=== PATIENT | male | born 1940 | race Caucasian/White ===

== ENCOUNTER 2021-07-04 06:38 | Inpatient (IN) | payer OTHER, SELFPAY ==
[2021-07-04] VITALS (22 sets, daily range): BP systolic 122–174; BP diastolic 66–99; PULSE 49–71; RESP 12–18; TEMP 36.6; O2SAT 94–97; BMI 39.4
[2021-07-04] MEDS: HEPARIN/D5w 25,000 UNITS 25,000 UNITS/250 ML IV.SOLN. 10 UNITS CONT INF (06:00)
--- NOTE | 2021-07-04 06:25 | PCM.HP.STD ---
HPI - General General Date of Admission: 07/04/21 Date of Service: 07/04/21 Chief Complaint: Chest pain, positive troponin HPI Darlene KEYS, is a 81 M who presents to the PCU at [facility] after being transferred from the emergency room at [facility]. Patient was taken there by squad early this morning with complaints of precordial chest pain which he described as pressure-like in nature and radiating into both jaw areas. His symptoms started approximately 12 midnight, his symptoms continued for approximately 2 hours, chest discomfort went away completely after he was given nitroglycerin in the ER. Patient had been given aspirin in the squad on the way into the hospital. Patient denied any nausea or vomiting, he denied any shortness of breath. Labs obtained at [facility] revealed a chemistry profile which was abnormal for potassium of 2.7 and a BUN of 24. Patient's beta natruretic peptide was elevated at 599 (upper limit of normal for the hospital was 450) and the patient's troponin was elevated at 174. Patient CBC was remarkable for hemoglobin of 12.5 but was otherwise normal. Patient's D-dimer was elevated and he underwent a CT of the chest which showed no evidence of pulmonary emboli or infiltrative process/congestive changes. EKG showed a right bundle branch block which appeared to be present on a previous EKG dated 10/15/2017, there were however ST-T wave changes in V3 through V6 which were not present on his previous EKG in 2018. Attempts were made to transfer the patient to [facility] but beds were not available. Patient was given oral potassium 20 mEq KCl in the emergency room and a heparin drip was started- without a bolus on my direction. Patient was excepted to [facility] PCU as a non-STEMI. Patient's chronic medical problems include hypertension for which he takes atenolol and hydrochlorothiazide. [facility] Medical History (Updated 07/04/21 @ 06:[address] Ulices Langley DO) CPAP (continuous positive airway pressure) dependence Hypertension Sleep apnea Home Medications atenolol 07/04/21 [History Last Taken Unknown] hydrochlorothiazide 07/04/21 [History Last Taken Unknown] venlafaxine mg PO 07/04/21 [History Last Taken Unknown] Allergy/AdvReac Type Severity Reaction Status Date / Time No Known Allergies Allergy Verified 07/04/21 06:05 Social History Smoking Status: Never smoker ROS Constitutional Constitutional: Denies anorexia, change in weight, fever(s), night sweats or weakness Eyes Eyes: Denies blurry vision, change in vision, discharge from eye(s) or eye pain Cardiovascular Cardiovascular: Reports chest pain; Denies claudication, dyspnea on exertion, edema, lightheadedness, palpitations, paroxysmal nocturnal dyspnea or rapid heart rate Respiratory/Chest Respiratory/Chest: Denies cough, excessive phlegm production, hemoptysis, productive cough, shortness of breath at rest or shortness of breath with exertion Gastrointestinal Gastrointestinal: Denies abdominal pain, coffee ground emesis, constipation, diarrhea, dyspepsia, hematemesis, hematochezia, melena, nausea or vomiting Genitourinary Genitourinary: Denies dysuria, hematuria, urinary frequency, urinary hesitancy, urinary incontinence or urinary urgency Musculoskeletal Musculoskeletal: Denies back pain, joint pain, joint stiffness, joint swelling, myalgias or neck pain Neurologic Neurologic: Denies abnormal gait, abnormal speech, dizziness, focal weakness, headache(s), loss of vision, numbness, other visual disturbances, paresthesias, syncope or tingling Psychiatric Psychiatric: Denies anxiety, cognitive impairment, depression, irritability, mood swings or suicidal ideation Endocrine Endocrinology: Denies change in body appearance, cold intolerance, excessive sweating, heat intolerance, polydipsia or polyuria Hematologic/Lymphatic Hematologic/Lymphatic: Denies none, anemia, easy bleeding, easy bruising or lymphadenopathy Allergic/Immunologic Allergic/Immunologic: Denies rhinitis, urticaria, eczemia or asthma Vital Signs Vital Signs Vital Signs: 07/04/21 06:08 07/04/21 06:12 Temperature 98 F Temperature Source Oral Pulse Rate 70 61 Respiratory Rate 16 Blood Pressure 174/87 H Blood Pressure Mean 116 Blood Pressure Source Monitor Blood Pressure Position Semi-Fowlers Blood Pressure Location Right Arm Pulse Ox 97 Oxygen Delivery Method Nasal Cannula Oxygen Flow Rate (L/min) 2 Weight Weight: 121.1 kg Body Mass Index (BMI) 39.4 Physical Exam Const alert, oriented x3, no apparent distress and healthy appearing General Appearance: cooperative, well kempt and well developed Orientation / Consciousness: awake, oriented to person, oriented to place and oriented to time HEENT normocephalic and moist oral mucous membranes Eyes PERRL, EOMs intact bilaterally and conjunctivae normal Neck nuchal rigidity, supple, no JVD, thyroid normal and no carotid bruits General: trachea midline Resp normal respiratory effort, no retractions, no use of accessory muscles and clear to auscultation bilaterally Auscultation: Negative for rales, rhonchi or wheezes Cardio regular rate, regular rhythm, S1 normal heart sound, S2 normal heart sound, no murmurs, no rub, no gallops and no JVD GI normal to inspection, nondistended, normoactive bowel sounds, soft to palpation, non-tender and non-distended Extremity no clubbing, cyanosis or edema Skin no rashes or lesions noted General Skin Exam: no breakdown Neuro oriented x3, CN's II-XII intact bilaterally, no focal motor deficits and no sensory deficits noted Sensorium / Orientation: awake and alert Speech: speech normal Psych affect normal Assessment & Plan Assessment/Plan (1) NSTEMI, initial episode of care: PLAN: 1. [id number] was admitted to PCU, stat BMP was ordered as well as stat cardiac enzymes, patient will remain on a heparin drip, he will be n.p.o., I have talked with Dr. Baltazar about his care and the plan will be for a heart cath today, I discussed this with the patient and he consents to having a heart catheter if needed. #2 hypokalemia-patient's potassium will be rechecked and he will get supplemental potassium as needed #3 essential hypertension-patient will remain on his atenolol for now, I will hold his hydrochlorothiazide #4 right bundle branch block-this appears to be chronic for the patient, he however does have ST-T wave changes over the anterior precordial leads Charges/Coding Visit Charges Inpatient E&M: 17153 Init Hosp L3
--- NOTE | 2021-07-04 06:44 | EKG12_ITS ---
Test Reason : DIRECT ADMIT Blood Pressure : / mmHG Vent. Rate : 059 BPM Atrial Rate : 059 BPM P-R Int : 244 ms QRS Dur : 140 ms QT Int : 478 ms P-R-T Axes : 050 030 -21 degrees QTc Int : 473 ms Sinus bradycardia with 1st degree A-V block Right bundle branch block T wave abnormality, consider lateral ischemia Abnormal ECG No previous ECGs available Confirmed by COREY HAMILTON, NAM ([id number]), scientific publications editor SHERYL ROUSSEAU ([id number]) on 07/07/2021 10:11:09 A M Referred By: EULALIO Confirmed By:YANG NICOLE MD
--- NOTE | 2021-07-04 06:47 | ECHOCS_ITS ---
Reason For Study: Chest Pain Procedure This was a 2D Doppler, Color Flow transthoracic echocardiogram. Contrast injection was performed. Exam performed portable in patient room. Left Ventricle The estimated ejection fraction is 50 %. No evidence for diastolic dysfunction. Hypokinesis of the lateral wall and posterior wall. Right Ventricle Normal RV size. Normal systolic function. Atria Normal left atrium. Normal right atrium. No doppler evidence for ASD. Mitral Valve There is moderate mitral annular calcification. There is no mitral valve stenosis. Trivial mitral valve insufficiency. Tricuspid Valve There is no tricuspid stenosis. Trivial tricuspid valve insufficiency. Unable to estimate RV systolic pressure due to insufficient tricuspid regurgitant envelope. Aortic Valve Trisinus/trileaflet aortic valve. Aortic sclerosis, no stenosis. There is no aortic stenosis. No aortic valve insufficiency. Pulmonic Valve There is no pulmonic valvular stenosis. No pulmonic valve insufficiency. Great Vessels Normal aortic root. Pericardium/Pleural No pericardial effusion. Medication Diluted definity 3ml given slow IV push to enhance endocardial definition. MMode/2D Measurements & Calculations LVIDd: 5.4 cm IVSd: 1.2 cm Ao root diam: 4.0 cm LVIDs: 4.0 cm LVPWd: 1.1 cm RVDd: 3.2 cm FS: 25.0 % LAV(MOD-bp): 71.0 ml LVAd ap4: 36.6 cm2 SV(MOD-sp4): 69.4 ml LAV(MOD-bp) Indexed: 30.7 ml/m2 LVLd ap4: 8.7 cm LAV(MOD-sp2): 61.7 ml EDV(MOD-sp4): 127.5 ml LAV(MOD-sp4): 67.5 ml EDV(sp4-el): 131.0 ml LVAs ap4: 23.1 cm2 LVLs ap4: 8.0 cm ESV(MOD-sp4): 58.1 ml ESV(sp4-el): 57.1 ml EF(MOD-sp4): 54.4 % EF(sp4-el): 56.4 % SV(sp4-el): 73.9 ml LA A4 area: 23.7 cm2 LA dimension(2D): 3.8 cm RA A4 area: 15.5 cm2 Doppler Measurements & Calculations MV E max karsten: 86.4 cm/sec Lat Peak E' Karsten: 7.2 cm/sec Med Peak E' Karsten: 7.6 cm/sec MV A max karsten: 94.4 cm/sec E/E' lat: 11.9 E/E' med: 11.3 MV E/A: 0.92 Ao V2 max: 144.3 cm/sec LV V1 max: 97.1 cm/sec PA V2 max: 79.6 cm/sec Ao max P.3 mmHg LV V1 max P.8 mmHg Ao V2 mean: 103.6 cm/sec Ao mean P.7 mmHg Ao V2 VTI: 36.3 cm ECHO/Echo Complete W/ Contrast Interpretation Summary The estimated ejection fraction is 50 %. No evidence for diastolic dysfunction. Hypokinesis of the lateral wall and posterior wall Trivial mitral valve insufficiency. Ordering Physician: Ulices Langley Performed By: Annette Sahu RDCS, RVT
[2021-07-04 07:10] LABS: Anion Gap 5 (5-15); BUN 23 mg/dL (7-18); BUN/Creat Ratio 24.2 RATIO (10-20); Calcium,Total 8.8 mg/dL (8.5-10.1); Chloride 103 mmol/L (98-107); Creatinine, Serum 0.95 mg/dL (0.70-1.30); EST Glomerular Filtration Rate 81 mL/min (>60); Est Glom Filt Rate - Afr Amer 98 mL/min (>60); Estimated Creatinine Clearance 63.05 ml/min; Glucose 136 mg/dL (74-106); Potassium 2.9 mmol/L (3.5-5.1); Sodium Level 141 mmol/L (136-145); Troponin-I HS 707 pg/mL (3.0-78.0)
[2021-07-04] MEDS: Potassium Chloride 10mEq/100mL 10 MEQ/100 ML IV.SOLN. 100 MEQ IV BOLUS ×4 (08:30→13:49)
[2021-07-04] MEDS: Atenolol 50 MG Tablet PO (09:08)
[2021-07-04] MEDS: Aspirin 81 MG TAB.CHEW PO (09:08)
[2021-07-04] MEDS: Potassium Chloride Oral Tablet 20 MEQ PO ×2 (09:08→19:08)
[2021-07-04 09:25] LABS: Partial Thromboplast Time 33.6 Seconds (24.1-36.2)
--- NOTE | 2021-07-04 09:30 | PN.HOSP_ITS ---
Documented by User: JOHN Nava 07/04/21 09:39 Subjective Subjective Patient seen and examined. Patient lying in bed no distress noted. Patient family at bedside. Patient currently undergoing echocardiogram. Objective Data Objective Data Vital Signs: Vital Signs Temp Pulse Resp BP Pulse Ox 97.8 F 60 18 152/74 H 97 07/04/21 09:12 07/04/21 09:12 07/04/21 09:12 07/04/21 09:12 07/04/21 09:12 Oxygen Flow Rate (L/min) 2 Oxygen Delivery Method Room Air Weight: 266 lb 15.677 oz Body Mass Index (BMI) 39.4 Lab / Micro Data Result Diagrams: 07/04/21 06:28 07/04/21 06:28 Labs: Laboratory Results - last 24 hr 07/04/21 06:28: Sodium 141, Potassium 2.9 L, Chloride 103, Carbon Dioxide 33.0 H , Anion Gap 5, BUN 23 H, Creatinine 0.95, Estim Creat Clear Calc 63.05, Est GFR (MDRD) Af Amer 98, Est GFR (MDRD) Non-Af 81, BUN/Creatinine Ratio 24.2 H, Glucose 136 H, Calcium 8.8, Troponin I High Sens 707 H* 07/04/21 09:00: APTT 33.6 Physical Exam Const alert, oriented x3 and no apparent distress HEENT head/scalp atraumatic Head and Scalp: normocephalic Eyes conjunctivae normal and no scleral icterus Neck supple General: trachea midline Resp normal respiratory effort, normal air movement and clear to auscultation bilaterally Effort and Inspection: able to speak in complete sentences and symmetric chest movement Cardio regular rate, regular rhythm, S1 normal heart sound and S2 normal heart sound GI normal to inspection, nondistended, normoactive bowel sounds, soft to palpation and non-tender Extremity normal to inspection, full ROM and no clubbing, cyanosis or edema Peripheral Pulses: Yes pulses 2+ throughout Skin no rashes or lesions noted, no wounds and skin turgor normal Neuro oriented x3, no focal motor deficits and no sensory deficits noted Sensorium / Orientation: awake and alert Speech: speech normal Psych affect normal Assessment & Plan Assessment/Plan (1) NSTEMI, initial episode of care: PLAN: 1. NSTEMI -Echocardiogram completed -Dr. Baltazar consulted -Troponin 707, 973 -Heparin drip continued at 10 mL/h 2. Hypokalemia -Serum 2.9, patient currently receiving potassium chloride 40 mEq IV x1 as well as potassium chloride 20 mEq twice daily -BMP ordered daily 3. Essential hypertension -Continue atenolol, hydrochlorothiazide on hold -Vital signs per protocol, currently stable DVT prophylaxis-patient on heparin drip This patient was seen by JOHN Nava under the supervision of Dr. Tijerina. 13 minutes spent in clinical coordination of patient's plan of care. Documented by User: Dr. Orlando Tijerina MD 07/04/21 10:06 Objective Data Lab / Micro Data Result Diagrams: 07/04/21 06:28 07/04/21 06:28 Assessment & Plan Addt'l Comments This patient was seen in conjunction with JOHN Nava . I have independently interviewed and examined the patient and reviewed pertinent historical, laboratory, and other data. Please refer to JOHN Nava note for details of this patient's presentation, findings, and recommendations. I have reviewed JOHN Nava note and concur with documented findings. In brief, patient is a 81-year-old gentleman with past medical history signal for hypertension admitted with chest pain found to have elevated troponin consistent with acute non-STEMI admitted to monitored bed treatment initiated per protocol Physical Examination: GENERAL: cooperative HEENT: Atraumatic; EYES; Anicteric, Normal Conjunctiva NECK; supple, normal thyroid, RESPIRATORY: Diminished to auscultation CARDIOVASCULAR: Regular S1 S2, GI: soft, normoactive bowel sounds, : No Renal angle tenderness; EXTREMITIES: No edema, no clubbing, MUSCULOSKELETAL: no muscle wasting NEURO: Awake; no lateralizing signs. SKIN: No Rash PSYCH; Flat affect Assessment: 1. Acute non-STEMI 2. Essential hypertension 3. Class II obesity with BMI of 39.4 4. DVT prophylaxis Recommendations: 1. I have discussed the results of my overview and impressions with the patient 2. Options for management were reviewed Advance planning; did discuss with the patient and family again (patient's brother) regarding advanced directives as well as CODE STATUS. Did explain the various scenarios involved ( FULL CODE, DNR CCA, DNR CCA with no intubation, and DNR CC and what each meant) patient elected to remain full code with CPR and intubation if needed. Order was placed. Time spent on discussion 18 minutes. Total time spent by myself and the advanced practice practitioner evaluating patient, reviewing labs, subsequent management decisions, discussion with patient as well as other providers 40 minutes ( 25 of which was spent by myself) Charges/Coding Procedures Hospitalists Procedures: 06461 Advncd Care Plan 30 Min
[2021-07-04 09:32] LABS: Magnesium 2.2 mg/dL (1.6-2.6); Troponin-I HS 973 pg/mL (3.0-78.0)
--- NOTE | 2021-07-04 10:49 | CON.PCM.CA_ITS ---
Assessment & Plan Assessment/Plan (1) NSTEMI, initial episode of care: PLAN: We will proceed with coronary angiography. Risks and benefits explained to the patient. Continue potassium replacement. We will avoid left ventriculogram/left heart cath due to hyperkalemia. HPI Consult Data Date of Consult: 07/04/21 HPI Narrative HPI Narrative: MIGUEL KEYS, is a 81 M who presents with retrosternal pressure- like chest pain radiating to the right arm. Patient was found to have elevated troponin. His potassium was low and is being replaced. He is currently chest pain-free. Review of systems: All systems reviewed. All else is negative except as in HPI [facility] Medical History (Updated 07/04/21 @ 06:[address] Ulices Langley, DO) CPAP (continuous positive airway pressure) dependence Hypertension Sleep apnea Home Medications atenolol 25 mg PO 07/04/21 [History Last Taken Unknown] hydrochlorothiazide 07/04/21 [History Last Taken Unknown] venlafaxine mg PO 07/04/21 [History Last Taken Unknown] Allergy/AdvReac Type Severity Reaction Status Date / Time No Known Allergies Allergy Verified 07/04/21 06:05 Social History Smoking Status: Never smoker Physical Exam Const alert and oriented x3 Orientation / Consciousness: awake HEENT normocephalic Eyes no scleral icterus Resp normal respiratory effort Skin no rashes or lesions noted Neuro oriented x3 Risk Stratification Risk Stratification Applicable: No Charges/Coding Visit Charges Inpatient E&M: 87728 Init Hosp L2 Objective Data Vital Signs: Vital Signs Temp Pulse Resp BP Pulse Ox 97.8 F 60 18 152/74 H 97 07/04/21 09:12 07/04/21 09:12 07/04/21 09:12 07/04/21 09:12 07/04/21 09:12 Oxygen Flow Rate (L/min) 2 Oxygen Delivery Method Room Air Weight: 266 lb 15.677 oz Body Mass Index (BMI) 39.4 Intake & Output: Intake and Output for Last 24 Hours 07/02/21 07/03/21 07/04/21 23:59 23:59 23:59 Intake Total 100 / 100 Balance 100 / 100 Lab / Micro Data Result Diagrams: 07/04/21 06:28 07/04/21 06:28 Labs: Laboratory Results - last 24 hr 07/04/21 06:28: Sodium 141, Potassium 2.9 L, Chloride 103, Carbon Dioxide 33.0 H , Anion Gap 5, BUN 23 H, Creatinine 0.95, Estim Creat Clear Calc 63.05, Est GFR (MDRD) Af Amer 98, Est GFR (MDRD) Non-Af 81, BUN/Creatinine Ratio 24.2 H, Glucose 136 H, Calcium 8.8, Troponin I High Sens 707 H* 07/04/21 08:48: Magnesium 2.2, Troponin I High Sens 973 H* 07/04/21 09:00: APTT 33.6 Cardiology Labs/Tests 07/04/21 06:28: Sodium 141, Potassium 2.9 L, Chloride 103, Carbon Dioxide 33.0 H , Anion Gap 5, BUN 23 H, Creatinine 0.95, Est GFR (MDRD) Af Amer 98, Est GFR (MDRD) Non-Af 81, BUN/Creatinine Ratio 24.2 H, Glucose 136 H, Calcium 8.8 07/04/21 08:48: Magnesium 2.2 07/04/21 09:00: APTT 33.6 Rhythm: EKG: ECHO: Stress Test: Cardiac Cath: PCI: CT Surgery: Holter monitor: EPS: PPM: CXR: Chest CT Scan:
[2021-07-04] MEDS: 0.9% Normal Saline 1,000 ML 70 ML IV (13:00)
--- NOTE | 2021-07-04 13:04 | PCM.DC ---
Discharge Instructions Diet Discharge Diet: Low fat / Low cholesterol Follow Up Care Test Results: Test results from this visit will be discussed in further detail at your follow-up appointment, if applicable. Discharge Plan Admission Admit Date/Time: 07/04/21 06:38 Primary Reason for Your Visit: Chest Pain Attending Provider: Orlando Tijerina Consulting Providers: Brian Baltazar ; Ulices Langley Discharge Orders/Prescriptions Prescriptions: New atorvastatin 80 mg Tablet 80 mg PO QHS Qty: 0 RF: 0 potassium chloride [Klor-Con M20] 20 mEq Tablet,Er Particles/Crystals 20 meq PO BIDCM Qty: 0 RF: 0 nitroglycerin 0.4 mg Tablet, Sublingual 0.4 mg sublingual Q5M PRN (Reason: Cardiac/Chest Pain) Qty: 0 RF: 0 aspirin 81 mg Tablet,Chewable 81 mg PO BREAKFAST Qty: 0 RF: 0 atenolol 50 mg Tablet 50 mg PO DAILY Qty: 0 RF: 0 sodium chloride 0.9 % (flush) [BD PosiFlush Normal Saline 0.9] Syringe 10 - 40 ml IV UD PRN (Reason: Saline Flush) Qty: 0 RF: 0 sodium chloride 0.9 % (flush) [BD PosiFlush Normal Saline 0.9] Syringe 10 - 40 ml IV UD PRN (Reason: Saline Flush) Qty: 0 RF: 0 ondansetron HCl (PF) 4 mg/2 mL Solution 4 mg IV Q8H PRN PRN (Reason: Nausea/Vomiting) Qty: 0 RF: 0 morphine 4 mg/mL Syringe 4 mg IV Q3H PRN PRN (Reason: Pain Score 6-10) Qty: 0 RF: 0 Continued atenolol 25 mg tablet 25 mg PO RF: 0 No Action venlafaxine 75 mg capsule,extended release 24hr PO RF: 0 hydrochlorothiazide 25 mg tablet RF: 0 Disposition Disposition (needs filled in before D/C Order can be placed): [facility]
--- NOTE | 2021-07-04 13:10 | PCM.DC.SUM ---
Documented by User: JOHN Nava 07/04/21 13:17 Providers Date of Admission: 07/04/21 Consultations 07/04/21 06:47 Consult: Cardiology Routine Consulting Provider: Brian Baltazar Reason for Consult: Non-STEMI EMERGENT Consult: No MD Notified: Yes Date Notified: 07/04/21 Time Notified: 06:41 Method of Notification: Verbal Method of Consult:: In-Person Reason For Visit: NSTEMI Diagnosis Discharge Diagnosis (1) NSTEMI, initial episode of care: Status: Acute Code(s): I21.4 - Non-ST elevation (NSTEMI) myocardial infarction Medications at Discharge Home Medications aspirin 81 mg PO BREAKFAST #0 tab 07/04/21 atenolol 50 mg PO DAILY #0 tab 07/04/21 atorvastatin 80 mg PO QHS #0 tab 07/04/21 hydrochlorothiazide 07/04/21 morphine 4 mg IV Q3H PRN PRN #0 ml 07/04/21 nitroglycerin 0.4 mg SUBLINGUAL Q5M PRN #0 tab 07/04/21 ondansetron HCl (PF) 4 mg IV Q8H PRN PRN #0 ml 07/04/21 potassium chloride [Klor-Con M20] 20 meq PO BIDCM #0 tab 07/04/21 sodium chloride 0.9 % (flush) [BD PosiFlush Normal Saline 0.9] 10 - 40 ml IV UD PRN #0 ml 07/04/21 sodium chloride 0.9 % (flush) [BD PosiFlush Normal Saline 0.9] 10 - 40 ml IV UD PRN #0 ml 07/04/21 venlafaxine mg PO 07/04/21 Hospital Course Procedures Cardiac catheterization and EKG Summary of Care Provided Minutes Spent on Discharge: 35 Hospital Course: Patient presented to outside ER with complaints of chest pain and pressure and a headache. Patient was noted to have EKG changes and an elevated troponin and it was decided that patient needed transfer to [facility] for further cardiology evaluation and possible heart cath. Dr. Baltazar was consulted and the case was discussed with him prior to patient arriving at our facility. This morning patient underwent echocardiogram and cardiac catheterization with Dr. Baltazar and patient was noted to need further evaluation at a tertiary care facility for CABG. patient has been accepted at [place] and we are awaiting bed placement. Physical Exam Const alert, oriented x3 and no apparent distress General Appearance: cooperative HEENT normocephalic and head/scalp atraumatic Eyes conjunctivae normal and no scleral icterus Neck supple General: trachea midline Resp normal respiratory effort, normal air movement and clear to auscultation bilaterally Cardio regular rate, regular rhythm, S1 normal heart sound, S2 normal heart sound and peripheral pulses 2+ throughout GI normal to inspection, nondistended, normoactive bowel sounds, soft to palpation and non-tender Extremity normal capillary refill and no clubbing, cyanosis or edema General Extremity: no tenderness to palpation of joints or extremities Skin skin turgor normal Lesions: no lesions Rashes: no rashes Neuro no focal motor deficits and no sensory deficits noted Speech: speech normal Motor Exam: Negative for general weakness Psych affect normal Appearance: appropriate Weight / BMI Weight Weight: 266 lb 15.677 oz Body Mass Index (BMI) 39.4 ABG / Lab / Microbiology Data Result Diagrams: 07/04/21 06:28 07/04/21 06:28 Laboratory: Laboratory Results - last 24 hr 07/04/21 06:28: Sodium 141, Potassium 2.9 L, Chloride 103, Carbon Dioxide 33.0 H, Anion Gap 5, BUN 23 H, Creatinine 0.95, Estim Creat Clear Calc 63.05, Est GFR (MDRD) Af Amer 98, Est GFR (MDRD) Non-Af 81, BUN/Creatinine Ratio 24.2 H, Glucose 136 H, Calcium 8.8, Troponin I High Sens 707 H* 07/04/21 08:48: Magnesium 2.2, Troponin I High Sens 973 H* 07/04/21 09:00: APTT 33.6 Radiography Diagnostic Testing: Radiology Impression Echocardiogram 07/04/21 06:47 Interpretation Summary The estimated ejection fraction is 50 %. No evidence for diastolic dysfunction. Hypokinesis of the lateral wall and posterior wall Trivial mitral valve insufficiency. Ordering Physician: Ulices Langley Performed By: Annette Sahu RDCS, RVT D/C Instructions Discharge Diet: Low fat / Low cholesterol Meaningful Use Info Meaningful Use Diagnoses (Choose all that apply): None applicable Discharge Plan Admission Admit Date/Time: 07/04/21 06:38 Primary Reason for Your Visit: Chest Pain Attending Provider: Orlando Tijerina Consulting Providers: Brian Baltazar ; Ulices Langley Discharge Orders/Prescriptions Prescriptions: New atorvastatin 80 mg Tablet 80 mg PO QHS Qty: 0 RF: 0 potassium chloride [Klor-Con M20] 20 mEq Tablet,Er Particles/Crystals 20 meq PO BIDCM Qty: 0 RF: 0 nitroglycerin 0.4 mg Tablet, Sublingual 0.4 mg sublingual Q5M PRN (Reason: Cardiac/Chest Pain) Qty: 0 RF: 0 aspirin 81 mg Tablet,Chewable 81 mg PO BREAKFAST Qty: 0 RF: 0 atenolol 50 mg Tablet 50 mg PO DAILY Qty: 0 RF: 0 sodium chloride 0.9 % (flush) [BD PosiFlush Normal Saline 0.9] Syringe 10 - 40 ml IV UD PRN (Reason: Saline Flush) Qty: 0 RF: 0 sodium chloride 0.9 % (flush) [BD PosiFlush Normal Saline 0.9] Syringe 10 - 40 ml IV UD PRN (Reason: Saline Flush) Qty: 0 RF: 0 ondansetron HCl (PF) 4 mg/2 mL Solution 4 mg IV Q8H PRN PRN (Reason: Nausea/Vomiting) Qty: 0 RF: 0 morphine 4 mg/mL Syringe 4 mg IV Q3H PRN PRN (Reason: Pain Score 6-10) Qty: 0 RF: 0 Continued venlafaxine 75 mg capsule,extended release 24hr PO RF: 0 hydrochlorothiazide 25 mg tablet RF: 0 Discontinued atenolol 25 mg tablet 25 mg PO RF: 0 Disposition Disposition (needs filled in before D/C Order can be placed): [facility] Documented by User: Dr. Orlando Tijerina MD 07/04/21 13:32 Providers Date of Admission: 07/04/21 Reason For Visit: NSTEMI Medications at Discharge Home Medications aspirin 81 mg PO BREAKFAST #0 tab 07/04/21 atenolol 50 mg PO DAILY #0 tab 07/04/21 atorvastatin 80 mg PO QHS #0 tab 07/04/21 hydrochlorothiazide 07/04/21 morphine 4 mg IV Q3H PRN PRN #0 ml 07/04/21 nitroglycerin 0.4 mg SUBLINGUAL Q5M PRN #0 tab 07/04/21 ondansetron HCl (PF) 4 mg IV Q8H PRN PRN #0 ml 07/04/21 potassium chloride [Klor-Con M20] 20 meq PO BIDCM #0 tab 07/04/21 sodium chloride 0.9 % (flush) [BD PosiFlush Normal Saline 0.9] 10 - 40 ml IV UD PRN #0 ml 07/04/21 sodium chloride 0.9 % (flush) [BD PosiFlush Normal Saline 0.9] 10 - 40 ml IV UD PRN #0 ml 07/04/21 venlafaxine mg PO 07/04/21 Hospital Course Summary of Care Provided Minutes Spent on Discharge: 35 Hospital Course: This patient was seen in conjunction with JOHN Nava . I have independently interviewed and examined the patient and reviewed pertinent historical, laboratory, and other data. Please refer to JOHN Nava note for details of this patient's presentation, findings, and recommendations. I have reviewed JOHN Nava note and concur with documented findings. In brief, patient is a 81-year-old gentleman with past medical history signal for hypertension admitted with chest pain found to have elevated troponin consistent with acute non-STEMI admitted to monitored bed treatment initiated per protocol Patient was seen in consultation by Dr. Baltazar who did perform left heart catheterization (see report of left heart catheterization ) based on findings he recommended patient to be transferred to a tertiary care facility for high risk PCI versus CABG at the place with cardiothoracic availability. Physical Examination: GENERAL: cooperative HEENT: Atraumatic; EYES; Anicteric, Normal Conjunctiva NECK; supple, normal thyroid, RESPIRATORY: Diminished to auscultation CARDIOVASCULAR: Regular S1 S2, GI: soft, normoactive bowel sounds, : No Renal angle tenderness; EXTREMITIES: No edema, no clubbing, MUSCULOSKELETAL: no muscle wasting NEURO: Awake; no lateralizing signs. SKIN: No Rash PSYCH; Flat affect Assessment: 1. Acute non-STEMI 2. Essential hypertension 3. Class II obesity with BMI of 39.4 4. DVT prophylaxis Recommendations: 1. I have discussed the results of my overview and impressions with the patient 2. Options for management were reviewed Total time spent by myself and the advanced practice practitioner evaluating patient, reviewing labs, subsequent management decisions, discussion with patient as well as other providers 35 minutes ( 20 of which was spent by myself) ABG / Lab / Microbiology Data Result Diagrams: 07/04/21 06:28 07/04/21 06:28 Meaningful Use Info Meaningful Use Diagnoses (Choose all that apply): AMI AMI/Post PCI/Angioplasty Aspirin given w/in 24hrs of arrival?: Yes ASA at discharge?: Yes Antiplatelet Therapy at Discharge:: Yes Statins at discharge?: Yes Rashad/ARB at discharge?: No Reason Rashad/ARB not ordered:: Not indicated Beta Luis at discharge?: Yes Done w/ Acute UT measure.: Yes Documented LVEF (%): 50 Discharge Plan Admission Admit Date/Time: 07/04/21 06:38 Primary Reason for Your Visit: Chest Pain Attending Provider: Orlando Tijerina Consulting Providers: Brian Baltazar ; Ulices Langley Discharge Orders/Prescriptions Prescriptions: New atorvastatin 80 mg Tablet 80 mg PO QHS Qty: 0 RF: 0 potassium chloride [Klor-Con M20] 20 mEq Tablet,Er Particles/Crystals 20 meq PO BIDCM Qty: 0 RF: 0 nitroglycerin 0.4 mg Tablet, Sublingual 0.4 mg sublingual Q5M PRN (Reason: Cardiac/Chest Pain) Qty: 0 RF: 0 aspirin 81 mg Tablet,Chewable 81 mg PO BREAKFAST Qty: 0 RF: 0 atenolol 50 mg Tablet 50 mg PO DAILY Qty: 0 RF: 0 sodium chloride 0.9 % (flush) [BD PosiFlush Normal Saline 0.9] Syringe 10 - 40 ml IV UD PRN (Reason: Saline Flush) Qty: 0 RF: 0 sodium chloride 0.9 % (flush) [BD PosiFlush Normal Saline 0.9] Syringe 10 - 40 ml IV UD PRN (Reason: Saline Flush) Qty: 0 RF: 0 ondansetron HCl (PF) 4 mg/2 mL Solution 4 mg IV Q8H PRN PRN (Reason: Nausea/Vomiting) Qty: 0 RF: 0 morphine 4 mg/mL Syringe 4 mg IV Q3H PRN PRN (Reason: Pain Score 6-10) Qty: 0 RF: 0 Continued venlafaxine 75 mg capsule,extended release 24hr PO RF: 0 hydrochlorothiazide 25 mg tablet RF: 0 Discontinued atenolol 25 mg tablet 25 mg PO RF: 0 Disposition Disposition (needs filled in before D/C Order can be placed): Acute Care Hospital Charges/Coding Visit Charges Inpatient E&M: 03707 Disch Hosp Hospital Course Imaging Results Imaging Results: 07/04/21 06:47 Echo Complete W/ Contrast [ECHO] Routine Consultations Consultations: Consultations 07/04/21 06:47 Consult: Cardiology Routine Consulting Provider: Brian Baltazar Reason for Consult: Non-STEMI EMERGENT Consult: No MD Notified: Yes Date Notified: 07/04/21 Time Notified: 06:41 Method of Notification: Verbal Method of Consult:: In-Person
--- NOTE | 2021-07-04 13:25 | CASEMGMT ---
JASMEET MELENDREZ assessment: Face to Face with patient for initial transition planning/care coordination assessment. JASMEET MELENDREZ introduced self and role at [facility], pt voices understanding and consents to assessment. Pt is lying in bed in no distress on room air. Pt is A/Ox4 and answers all questions appropriately. Pt with family at bedside during assessment. Care providers, pharmacy, and demographics verified/updated. Presentation: Pt was direct admit from from [facility] for [facility] Admitting dx: NSTEMI PCP: Martín Sauer Specialists: None Preferred Pharmacy: [facility] [place] [facility] [place]: [facility] [place] Living Will/HPOA: Pt states has LW/HPOA and is aware that they are not on file at [facility]. Pt states his son, Tello Carroll, is HPOA. LNOK: Tello Carroll, son/HPOA; Gerald Moreno, friend Living Arrangements: Pt lives alone on main level of 2 story home and states no concerns at home. Pt is independent with ADL's. Transportation: Pt states no transportation concerns. DME/HHC: Pt states no DME at home or need for any DME. Pt states has had HHC in past s/p knee surgery and states no hx of SNF. Pt states no concerns with going home at time of discharge. Pt states does not smoke cigarettes or drink ETOH. Pt states no further concerns/needs. CM to follow for any further discharge planning/needs. Advised pt to ask for CM if any further questions/concerns/needs arise, voices understanding. Pt Goal: Home Plan: Home after transfer to [place] for further intervention SSthemal ALAMO CM
[2021-07-04 13:33] LABS: Troponin-I HS 1536 pg/mL (3.0-78.0)
--- NOTE | 2021-07-04 14:37 | CL.D_ITS ---
Patient Name: MIGUEL KEYS Study Date: 07/04/2021 Performing: Sharad Baltazar MD Ht: 69 inches 175 cm : 1940 Wt: 267.1 lbs 121 kg Age: 81 Gender: male BSA: 2.33 PROCEDURE(S) PERFORMED [id number])LHC/COR CLINICAL PROFILE AND INDICATIONS Indications: ACS <= 24 hrs Heart Failure: None Stress/Imaging Stress/Image Study Performed: No CAD Presentations: Non-STEMI. Symptom onset Date/Time: 07/03/21 Time Not Available CONCLUSIONS CAD as described. RECOMMENDATIONS CT surgery consult for heart team approach for revascularization DESCRIPTION OF PROCEDURE The patient arrived to the procedure lab. The risks and benefits of the procedure as well as a full d escription of our services here and current unavailability of surgical backup were fully explained to the patient and/or their significant other prior to the catheterization. The Timeout was completed, verifying the correct patient and procedure. The patient's procedural site was prepped and draped in the usual fashion. Local anesthetic was given subcutaneously to right radial region with Lidocaine 2% . Using a modified Seldinger technique, arterial access was obtained via the right radial artery, a 6 Fr sheath was inserted. Left Coronary Artery selective angiography was performed in multiple views u sing a 5 Fr. JL3.5 catheter. Right Coronary Artery selective angiography was then performed in multip le views using a 5 Fr. JR 4 catheter.The arterial sheath was pulled and a TR Band was applied for hem ostasis CORONARY ANGIOGRAPHY DOMINANCE: Left Dominant LEFT HEART ASSESSMENT Left Ventricular Ejection Fraction: by Echo 50 % LEFT MAIN: 20 % Stenosis LEFT ANTERIOR DESCENDING ARTERY: PROX LAD: 95 % Stenosis. There is a bifurcation lesion involving the first diagonal which is a medium to large size vessel DISTAL LAD: Severe diffuse disease in the mid to distal LAD. The apical portion of the LAD has mild luminal irregularities DIAGONAL 1: Proximal - 70 % Stenosis CIRCUMFLEX ARTERY: Mild luminal irregularities OM 1: Proximal - 95 % Stenosis. The OM1 divides into 2 medium sized branches immediately distal to th is stenosis. RIGHT CORONARY ARTERY: OSTIAL RCA: 50 % Stenosis. RCA is small, non dominant COMPLICATIONS No Complications PROCEDURE MEDICATIONS Fentanyl 50 mcg IV Versed 1 mg IV Oxygen: 2 L/min via nasal cannula Heparin given IA 07/04/2021 11:33:58 Verapamil 2.5mg, Ntg 100mcgs, 3000 units of Heparin given IA 07/04/2021 11:33:58 SUMMARY OF HEMODYNAMIC DATA Time AIR REST ECG 11:17:26 AO 146/82 (109) SA 11:48:20 Signed By Sharad Baltazar MD On 07/04/2021 14:36:20 Sharad Baltazar MD
--- NOTE | 2021-07-04 19:34 | NURSING ---
report called to shanell at [facility]
[2021-07-04] MEDS: Nitroglycerin Oint 1 INCH PACKET 0.5 INCH TD (20:11)
[2021-07-04] MEDS: Atorvastatin Calcium 80 MG Tablet PO (20:12)
--- NOTE | 2021-07-04 20:12 | NURSING ---
patient refused to take morphine for pain at this time
--- NOTE | 2021-07-04 20:30 | NURSING ---
Patient states pressure is gone, nitro paste helped.
== END 2021-07-04 21:50 | disposition short-term general hospital (02) | DRG 282 ==
PROVIDERS: Admitting Provider Internal Medicine; PCP Family Medicine; Visit Provider Family Medicine
DX: I21.4 Non-ST elevation (NSTEMI) myocardial infarction (principal); E66.9 Obesity, unspecified; I45.10 Unspecified right bundle-branch block; I10 Essential (primary) hypertension; E87.6 Hypokalemia; I25.10 Atherosclerotic heart disease of native coronary artery without angina pectoris; Z68.39 Body mass index [BMI] 39.0-39.9, adult; Z79.82 Long term (current) use of aspirin; Z79.899 Other long term (current) drug therapy
CPT/HCPCS: 36415; 80048; 83735; 84484; 85730; 93005; 93306; 93454; 99152; 99153; J7030; J7040; Q9957; Q9967; A4216; C1769; C1894; C8929